=== PATIENT | female | born 2000 | race Caucasian/White ===

== ENCOUNTER 2023-12-09 17:40 | Inpatient (IN) | payer SELFPAY ==
[2023-12-09] VITALS (30 sets, daily range): BP systolic 81–131; BP diastolic 43–89; PULSE 83–117; RESP 15–20; TEMP 36.4–37.4; O2SAT 97–100; BMI 26.2
[2023-12-09] MEDS: Lactated Ringers 1,000 ML 50 ML IV (13:15)
--- NOTE | 2023-12-09 13:24 | HP.PCM.OB_ITS ---
HPI - General General Date of Admission: 12/09/23 Date of Service: 12/09/23 Chief Complaint: in Active Labor HPI Narrative SIDNEY VAN, is a 23 F G2, P1 with an EDC of 12/04/2023 by LMP and approximately 20-week ultrasound who presents to labor and delivery from home in active labor with her clay caster. Spontaneous rupture membranes at 6:30 AM today now 1:30 PM. Patient was reportedly 8 cm dilated and some decelerations were noted on the monitor at home while she was laboring so they decided to come to [facility] labor and delivery. Patient had a prior low transverse section at 33+ weeks gestation in August 2021 at [facility] per Dr. Jackson for twins and cholestasis of . She has had regular visits to her clay caster but otherwise no care during the . The only other issue she has had during is palpitations but an EKG during the was normal. She has not had any labs done during the but intermittent fingerstick glucose checks were acceptable. Patient is on vitamins and multiple other supplements. Maternal Data Information Final GIOVANI: 12/04/23 Final GIOVANI Source: LMP Gestational age: 40 weeks 5 days gestation PFSH PFSH Allergy/AdvReac Type Severity Reaction Status Date / Time No Known Allergies Allergy Verified 12/09/23 13:01 Vital Signs Vital Signs Vital Signs: AF, VSS 12/09/23 12:04 12/09/23 12:04 Pulse Rate 110 H Blood Pressure 124/86 H BP Systolic 124 BP Diastolic 86 Weight Weight: 162 lb 8 oz Body Mass Index (BMI) 26.2 Physical Exam Narrative Patient in obvious labor. Abdomen size appropriate for gestational age. Monitor shows contractions every 3 to 4 minutes moderate. Cervix is 7-8, 90% effaced and -1 station. Const oriented x3 General Appearance: cooperative HEENT normocephalic Eyes PERRL Neck full ROM Resp normal respiratory effort Uterus Palpation: uterus fundus Neuro moves all extremities, no focal motor deficits and no sensory deficits noted Psych mental status grossly normal, affect normal, speech normal and activity/motor behavior normal Labs Labs Labs: No Data to Display Assessment & Plan (1) Desires (vaginal after ) trial: PLAN: Patient in active labor. IUPC and peripheral IV inserted. Offered penicillin for group B strep prophylaxis and drawing routine labs and patient is considering. Hoping for spontaneous vaginal delivery. Discussed possibility of repeat with patient and her and all questions were answered.
[2023-12-09] MEDS: Penicillin G Pot 5,000,000 UNITS in 0.9% Normal Saline (100mL MB+) 100 ML 150 UNITS IV (13:34)
[2023-12-09 13:59] LABS: Absolute Lymphocyte Count 1.25 X10^3/uL (0.83-4.51); Absolute Neutrophil Count 14.9 X10^3/uL (2.0-7.7); Basophil# 0.06 X10^3/uL; Basophil% 0.3 % (0-1); Eosinophil# 0.01 X10^3/uL; Eosinophils% 0.1 % (0-5); Hematocrit 38.5 % (37-47); Hemoglobin 12.8 g/dL (12.0-15.0); Lymphocyte # 1.25 X10^3/ul (0.83-4.51); Lymphocyte % 7.2 % (19-41); Mean Corp Hgb Conc 33.2 g/dL (32-36); Mean Corpuscular Hgb 27.5 pg (27.0-32.0); Mean Corpuscular Volume 82.6 fL (81-99); Mean Platelet Vol. 10.1 fl (6.2-12.0); Monocyte# 0.92 X10^3/uL; Monocyte% 5.3 % (0-10); NRBC Flagged by Analyzer 0 % (0-5); Neutrophil % 85.2 % (47-70); Platelet Count 264 K/mm3 (150-450); RBC Distribution Width CV 13.4 % (11.6-14.6); Red Blood Count 4.66 M/mm3 (4.2-5.4); White Blood Count 17.5 K/mm3 (4.4-11.0)
[2023-12-09] MEDS: Oxytocin 15 Units/NS 250ml 15 UNITS/250 ML IV.SOLN 2 UNITS IV (14:30)
[2023-12-09] MEDS: Lactated Ringers 1,000 ML 200 ML IV (14:40)
[2023-12-09 14:41] LABS: Amphetamine Urine VISTA NEGATIVE (<1000 ng/mL); Barbiturate Urine VISTA NEGATIVE (< 200 ng/mL); Benzodiazepine Urine VISTA NEGATIVE (< 200 ng/mL); Cocaine Urine VISTA NEGATIVE (< 300 ng/mL); Ecstacy Urine VISTA NEGATIVE (< 500 ng/mL); Methadone Urine VISTA NEGATIVE (< 300 ng/mL); PCP Urine VISTA NEGATIVE (< 25 ng/mL); THC Urine VISTA NEGATIVE (< 50 ng/mL); Vista UDS pH Range 7
[2023-12-09 14:52] LABS: HIV - WCH Non-Reactive (Nonreactive); Rubella IgG Non-Reactive (Nonreactive); Syphilis Antibodies Non-reactive
[2023-12-09] MEDS: fentaNYL-bupivacaine (epidural) 100 ML BAG EPIDURAL (15:03)
[2023-12-09 16:09] LABS: Hepatitis B Surface Antigen Non-Reactive (Nonreactive); Hepatitis C Antibody Non-Reactive (Nonreactive)
--- NOTE | 2023-12-09 17:50 | EX.PCM.OBRPT ---
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 8 cm dilated and previous section. Some heart decelerations were noted at home. Operative Information Date of Procedure: 12/09/23 Pre-Operative Diagnosis: Prior Section in Active Labor Post-Operative Diagnosis: Prior Section in Active Labor Surgery / Procedure Performed: Spontaneous Vaginal Delivery and Type of Anesthesia: Epidural Estimated Blood Loss: 250 cc Findings Description of Procedure: Successful . Spontaneous vaginal delivery of a viable female with Apgars of 8/9 from an occiput anterior presentation with clear amniotic fluid and normal three-vessel placenta. No episiotomy. Second-degree midline laceration repaired with 3-0 rapide suture under epidural anesthesia. Delivery physician: Imer García MD. Presentation: Vertex Amniotic Membrane Rupture Type: Spontaneous Amniotic Fluid Description: Clear Placental Delivery Description: Spontaneous Placenta Disposition: [facility] Cord Vessel Description: 3 Vessels Cord Entanglement: None Infant A Gender: Female (1 minute): 8 (5 minute): 9 Delayed Cord Clamping: Yes Post Vaginal Delivery Medications Given After Delivery: IV Pitocin Laceration: Midline and 2nd degree Complication Complications: None
[2023-12-09] MEDS: Oxytocin 15 Units/NS 250ml 15 UNITS/250 ML IV.SOLN 83 UNITS IV (18:38)
[2023-12-09] MEDS: Acetaminophen 500 MG Tablet 1000 MG PO (22:48)
[2023-12-10 03:51] VITALS: BP 110/68; PULSE 88; O2SAT 97
[2023-12-10 04:12] VITALS: BP 110/68; PULSE 87; RESP 16; TEMP 36.6; O2SAT 97
--- NOTE | 2023-12-10 06:42 | PCM.DC.SUM ---
Providers Date of Admission: 12/09/23 Date of Discharge: 12/10/23 Primary Care Physician: ROSE Laura Reason For Visit: VAGINAL Diagnosis Discharge Diagnosis (1) Desires (vaginal after ) trial: Status: Acute Code(s): O34.219 - Maternal care for unspecified type scar from previous delivery Medications at Discharge Home Medications biotin 5 mg capsule 5 mg PO DAILY 12/09/23 multivitamin (Daily Multi-Vitamin tablet) 1 tab PO DAILY 12/09/23 Hospital Course Summary of Care Provided Hospital Course: Patient was admitted and had a spontaneous vaginal delivery with . patient did well and wished to be discharged on day #1 if baby is able to be discharged. Weight / BMI Weight Weight: 162 lb 8 oz Body Mass Index (BMI) 26.2 ABG / Lab / Microbiology Data 12/09/23 13:15 Laboratory: Laboratory Results - last 24 hr 12/09/23 13:15: WBC 17.5 H, RBC 4.66, Hgb 12.8, Hct 38.5, MCV 82.6, MCH 27.5, MCHC 33.2, RDW Std Deviation 40.0, RDW Coeff of Joaquin 13.4, Plt Count 264, MPV 10.1, Immature Gran % (Auto) 1.900 H, Neut % (Auto) 85.2 H, Lymph % (Auto) 7.2 L, Mcdonough % (Auto) 5.3, Eos % (Auto) 0.1, Baso % (Auto) 0.3, Absolute Neuts (auto) 14.9 H, Absolute Lymphs (auto) 1.25, Nucleated RBC % 0, Urine Opiates Screen NEGATIVE, Urine Methadone Screen NEGATIVE, Ur Barbiturates Screen NEGATIVE, Ur Phencyclidine Scrn NEGATIVE, Ur Amphetamines Screen NEGATIVE, MDMA (Ecstasy) Screen NEGATIVE, U Benzodiazepines Scrn NEGATIVE, Urine Cocaine Screen NEGATIVE, U Cannabinoids Screen NEGATIVE, Ur Drug Screen Comment , Syphilis Total Ab Non-reactive, Hep Bs Antigen Non-Reactive, Hepatitis C Antibody Non-Reactive, HIV 1&2 Antibody Non-Reactive, Rubella IgG Antibody Non-Reactive, Blood Type A POSITIVE, Antibody Screen NEGATIVE Microbiology: Microbiology 12/09/23 13:15 Urine, Clean Catch Chlamydia/Neisseria (PCR) - Final 08/27/24 14:15 Genital vaginal Group B Streptococcus (PCR) - Final Meaningful Use Info Meaningful Use Meaningful Use Diagnoses (Choose all that apply): None applicable Ischemic Stroke Statin Dosing Therapy Reference: STATIN DOSE THERAPY REFERENCE: * Patients > 75 years receive moderate or high dose statin therapy. * Patients 75 years or YOUNGER should receive HIGH intensity statin dose unless contraindicated. You will be required to document reason for non-treatment if statin daily dose does not meet guidelines. HIGH DOSE STATIN THERAPY DAILY Atorvastatin > than or = to 40 mg Rosuvastatin > than or = to 20 mg Amlodipine + Atorvastatin > than or = to 2.5/40 mg Ezetimibe + Simvastatin 10/80 mg Simvastatin 80mg Discharge Plan Admission Admit Date/Time: 12/09/23 17:40 Attending Provider: Imer García Primary Care Provider: Ann Marie Geiger Discharge Orders/Prescriptions Prescriptions: No Action multivitamin [Daily Multi-Vitamin] Tablet 1 tab PO DAILY biotin 5 mg capsule 5 mg PO DAILY Referrals / Follow Up: Ann Marie Geiger PA [Primary Care Provider] - Disposition Disposition (needs filled in before D/C Order can be placed): Home, Self Care
[2023-12-10 11:00] VITALS: BP 134/79; PULSE 104; PULSE 85; O2SAT 97
[2023-12-10 12:11] VITALS: BP 114/74; PULSE 102; PULSE 107; RESP 17; TEMP 36.8; O2SAT 98
--- NOTE | 2023-12-10 14:02 | NURSING ---
Pt declined MMR vaccine
== END 2023-12-10 12:25 | disposition home or self-care (01) | DRG 807 ==
PROVIDERS: Admitting Provider Obstetrics & Gynecology; Referring Provider Obstetrics & Gynecology; Visit Provider Obstetrics & Gynecology
DX: O76 Abnormality in fetal heart rate and rhythm complicating labor and delivery (principal); Z37.0 Single live birth; O34.211 Maternal care for low transverse scar from previous cesarean delivery; O42.02 Full-term premature rupture of membranes, onset of labor within 24 hours of rupture; O70.1 Second degree perineal laceration during delivery; Z3A.40 40 weeks gestation of pregnancy
CPT/HCPCS: 59025; 59050; 80307; 85025; 86703; 86762; 86780; 86803; 86850; 86900; 86901; 87081; 87340; 87491; 87591; 87653; 99221; J7120; G0378